=== PATIENT | male | born 1960 | race Caucasian/White ===

== ENCOUNTER 2017-03-11 20:40 | Inpatient (IN) | payer MEDICARE, MEDICAID ==
[~2017-03-11] VITALS: Ht 188 cm; Wt 95.7 kg
[2017-03-11 22:36] LABS: BASOPHILS # (AUTO) 0.03 K/uL (0.00-0.20); BASOPHILS % (AUTO) 0.4 % (0.0-2.0); EOSINOPHILS # (AUTO) 0.05 K/uL (0.00-0.70); EOSINOPHILS % (AUTO) 0.64 % (1.0-6.0); HEMATOCRIT 37.1 % (41-53); HEMOGLOBIN 12.1 g/dL (13.5-17.5); LYMPHOCYTES # (AUTO) 2.4 K/uL (1.0-4.8); LYMPHOCYTES % (AUTO) 29.8 % (22.0-44.0); MEAN CORPUSCULAR HEMOGLOBIN 27.1 pg (26.0-34.0); MEAN CORPUSCULAR HGB CONC 32.5 G/dL (31.0-37.0); MEAN CORPUSCULAR VOLUME 83 fL (80-100); MONOCYTES # (AUTO) 0.6 K/uL (0.1-1.0); MONOCYTES % (AUTO) 7.2 % (2.0-9.0); NEUTROPHILS # (AUTO) 4.9 K/uL (1.8-7.7); NEUTROPHILS % (AUTO) 61.9 % (40.0-70.0); PLATELET COUNT (AUTO) 246 K/uL (150-450); RED BLOOD CELL COUNT(AUTO) 4.46 MIL/uL (4.50-5.90); RED CELL DISTRIBUTION WIDTH 16.8 % (11.5-14.5); WHITE BLOOD COUNT (AUTO) 7.9 K/uL (4.5-11.0)
[2017-03-11 22:40] LABS: APPEARANCE,URINE CLEAR (CLEAR); GLUCOSE, URINE (UA) NEGATIVE (NEGATIVE); KETONES,URINE NEGATIVE (NEGATIVE); LEUKOCYTE ESTERASE ,URINE NEGATIVE (NEGATIVE); OCCULT BLOOD,URINE NEGATIVE (NEGATIVE); PROTEIN,URINE NEGATIVE (NEGATIVE)
[2017-03-11 22:41] LABS: ADD UA MICROSCOPIC NO
[2017-03-11] MEDS ORDERED: DiphenhydrAMINE HCL 50 MG/ML VIAL IM ONE (22:45)
[2017-03-11] MEDS ORDERED: LORazepam 2 MG/ML VIAL IM ONE (22:45)
[2017-03-11 22:55] LABS: ANION GAP 6 mmol/L (8-16); CALCIUM, TOTAL 9.5 mg/dL (8.8-10.5); CARBON DIOXIDE 29 mmol/L (22-29); CHLORIDE 103 mmol/L (98-107); CREATININE 1.12 mg/dL (0.60-1.30); GLOMERULAR FILTR. RATE CALC > 60 mL/min (>60); SODIUM SERUM 138 mmol/L (136-145); UREA NITROGEN, BLOOD 14 mg/dL (7-18)
[2017-03-11 23:00] LABS: ALANINE AMINOTRANSFERASE 27 U/L (12-78); ASPARTATE AMINOTRANSFERASE 20 U/L (15-37); BILIRUBIN,TOTAL 0.2 mg/dL (0.1-1.0); TOTAL PROTEIN, SERUM 7.7 g/dL (6.4-8.2)
[2017-03-11] MEDS: HALOPERIDOL LACTATE 5 MG/ML VIAL IM ONE (23:18)
[2017-03-11] MEDS ORDERED: ZOLPIDEM TARTRATE 10 MG TABLET PO PRN (23:45)
[2017-03-11] MEDS ORDERED: HALOPERIDOL 5 MG TABLET PO PRN (23:45)
[2017-03-12 05:55] VITALS: BP 108/52
[2017-03-12 08:49] VITALS: BP 125/67
[2017-03-12] MEDS: LORazepam 2 MG TABLET PO PRN ×2 (15:03→19:09)
[2017-03-12 16:00] VITALS: BP 122/79
[2017-03-12] MEDS: QUEtiapine FUMARATE 100 MG TABLET PO PRN (18:10)
[2017-03-12] MEDS: QUEtiapine FUMARATE 100 MG TABLET PO SCH (20:41)
[2017-03-12] MEDS ORDERED: ACETAMINOPHEN 325 MG TABLET PO PRN (21:45)
[2017-03-12] MEDS ORDERED: IBUPROFEN 400 MG TABLET PO PRN (21:45)
[2017-03-13 06:10] VITALS: BP 138/99
[2017-03-13] MEDS: FERROUS SULFATE 325 MG EC TABLET PO SCH ×4 (06:47→20:25)
[2017-03-13] MEDS: QUEtiapine FUMARATE 100 MG TABLET PO PRN (08:14)
[2017-03-13] MEDS: LORazepam 2 MG TABLET PO PRN ×2 (08:14→20:25)
[2017-03-13 08:32] VITALS: BP 127/66
[2017-03-13 16:00] VITALS: BP 118/64
[2017-03-13] MEDS: QUEtiapine FUMARATE 100 MG TABLET PO SCH (20:25)
[2017-03-14 00:20] VITALS: BP 145/96
[2017-03-14] MEDS: FERROUS SULFATE 325 MG EC TABLET PO SCH ×4 (06:19→20:18)
[2017-03-14 08:42] VITALS: BP 127/66
[2017-03-14 16:12] VITALS: BP 159/81
[2017-03-14] MEDS: LORazepam 2 MG TABLET PO PRN (17:14)
[2017-03-14] MEDS: QUEtiapine FUMARATE 100 MG TABLET PO PRN (17:14)
[2017-03-14] MEDS: QUEtiapine FUMARATE 100 MG TABLET PO SCH (20:18)
[2017-03-15 06:15] VITALS: BP 120/74
[2017-03-15] MEDS: FERROUS SULFATE 325 MG EC TABLET PO SCH ×4 (06:19→20:55)
[2017-03-15 08:13] VITALS: BP 147/96
[2017-03-15 16:27] VITALS: BP 108/69
[2017-03-15] MEDS: QUEtiapine FUMARATE 100 MG TABLET PO SCH (20:54)
[2017-03-16 05:41] VITALS: BP 147/71
[2017-03-16] MEDS: FERROUS SULFATE 325 MG EC TABLET PO SCH ×4 (06:22→20:14)
[2017-03-16 08:05] VITALS: BP 145/75
[2017-03-16 16:20] VITALS: BP 135/71
[2017-03-16] MEDS: QUEtiapine FUMARATE 100 MG TABLET PO PRN (17:24)
[2017-03-16] MEDS: LORazepam 2 MG TABLET PO PRN (17:24)
[2017-03-16] MEDS: QUEtiapine FUMARATE 200 MG TABLET PO SCH (20:14)
[2017-03-17 05:09] VITALS: BP 142/82
[2017-03-17] MEDS: FERROUS SULFATE 325 MG EC TABLET PO SCH ×4 (06:37→20:20)
[2017-03-17 08:11] VITALS: BP 142/77
[2017-03-17 16:19] VITALS: BP 103/69
[2017-03-17] MEDS: LORazepam 2 MG TABLET PO PRN (17:01)
[2017-03-17] MEDS: QUEtiapine FUMARATE 100 MG TABLET PO PRN (17:02)
[2017-03-17] MEDS: QUEtiapine FUMARATE 200 MG TABLET PO SCH (20:20)
[2017-03-18] MEDS: FERROUS SULFATE 325 MG EC TABLET PO SCH ×4 (06:07→20:25)
[2017-03-18 07:10] VITALS: BP 142/83
[2017-03-18 08:08] VITALS: BP 131/71
[2017-03-18] MEDS: LORazepam 2 MG TABLET PO PRN ×2 (08:36→16:20)
[2017-03-18] MEDS: QUEtiapine FUMARATE 100 MG TABLET PO PRN ×2 (08:36→16:20)
[2017-03-18] MEDS: QUEtiapine FUMARATE 200 MG TABLET PO SCH ×2 (09:27→20:25)
[2017-03-18 16:00] VITALS: BP 116/68
[2017-03-19 00:04] VITALS: BP 124/61
[2017-03-19] MEDS: FERROUS SULFATE 325 MG EC TABLET PO SCH ×4 (06:14→20:05)
[2017-03-19 08:08] VITALS: BP 129/81
[2017-03-19] MEDS: QUEtiapine FUMARATE 200 MG TABLET PO SCH ×2 (08:40→20:05)
[2017-03-19 16:00] VITALS: BP 115/73
[2017-03-19] MEDS: LORazepam 2 MG TABLET PO PRN (16:48)
[2017-03-20 03:07] VITALS: BP 120/94
[2017-03-20] MEDS: FERROUS SULFATE 325 MG EC TABLET PO SCH ×4 (06:31→20:09)
[2017-03-20 08:08] VITALS: BP 143/95
[2017-03-20] MEDS: QUEtiapine FUMARATE 200 MG TABLET PO SCH ×2 (09:38→20:09)
[2017-03-20 16:00] VITALS: BP 134/76
[2017-03-21 00:40] VITALS: BP 120/72
[2017-03-21] MEDS: FERROUS SULFATE 325 MG EC TABLET PO SCH ×4 (06:25→20:42)
[2017-03-21 08:30] VITALS: BP 122/84
[2017-03-21] MEDS: QUEtiapine FUMARATE 300 MG TABLET PO SCH ×2 (08:31→20:42)
[2017-03-21 16:00] VITALS: BP 136/86
[2017-03-21] MEDS: LORazepam 2 MG TABLET PO PRN (16:47)
[2017-03-21] MEDS: QUEtiapine FUMARATE 100 MG TABLET PO PRN (16:48)
[2017-03-22] MEDS: FERROUS SULFATE 325 MG EC TABLET PO SCH ×4 (06:33→20:19)
[2017-03-22 06:59] VITALS: BP 138/87
[2017-03-22 08:00] VITALS: BP 134/88
[2017-03-22] MEDS: QUEtiapine FUMARATE 300 MG TABLET PO SCH ×2 (09:39→20:19)
[2017-03-22] MEDS: LORazepam 2 MG TABLET PO PRN (09:39)
[2017-03-22 16:00] VITALS: BP 135/87
[2017-03-23 02:09] VITALS: BP 120/87
[2017-03-23] MEDS: FERROUS SULFATE 325 MG EC TABLET PO SCH ×4 (06:24→20:18)
[2017-03-23 08:13] VITALS: BP 131/100
[2017-03-23] MEDS: QUEtiapine FUMARATE 300 MG TABLET PO SCH ×2 (08:16→20:18)
[2017-03-23] MEDS: LORazepam 2 MG TABLET PO PRN (08:22)
[2017-03-23 16:00] VITALS: BP 144/87
[2017-03-24 00:20] VITALS: BP 131/80
[2017-03-24] MEDS: FERROUS SULFATE 325 MG EC TABLET PO SCH ×4 (06:58→20:32)
[2017-03-24 08:15] VITALS: BP 137/74
[2017-03-24] MEDS: QUEtiapine FUMARATE 300 MG TABLET PO SCH ×2 (09:09→20:32)
[2017-03-24 17:25] VITALS: BP 144/86
[2017-03-25 04:52] VITALS: BP 130/85
[2017-03-25] MEDS: FERROUS SULFATE 325 MG EC TABLET PO SCH ×4 (07:33→21:14)
[2017-03-25 08:27] VITALS: BP 132/81
[2017-03-25] MEDS: QUEtiapine FUMARATE 300 MG TABLET PO SCH ×2 (09:22→21:54)
[2017-03-25 16:33] VITALS: BP 132/87
[2017-03-26 00:49] VITALS: BP 128/92
[2017-03-26] MEDS ORDERED: QUET300T2 PO (03:42)
[2017-03-26] MEDS ORDERED: FERR-89 PO (03:42)
[2017-03-26] MEDS: FERROUS SULFATE 325 MG EC TABLET PO SCH (07:02)
[2017-03-26 08:00] VITALS: BP 121/76
== END 2017-03-26 08:00 | disposition home or self-care (01) | DRG 885 ==
LOC: EMS 20:43 → B3A 03-12 04:05 → B2S 03-23 12:52
PROC: HZ37ZZZ Individual Counseling for Substance Abuse Treatment, Motivational Enhancement (ICD-10-PCS; principal; 2017-03-15)
DX: F20.0 Paranoid schizophrenia (principal); F19.10 Other psychoactive substance abuse, uncomplicated; F17.210 Nicotine dependence, cigarettes, uncomplicated; D64.9 Anemia, unspecified; Z88.8 Allergy status to other drugs, medicaments and biological substances; Z71.51 Drug abuse counseling and surveillance of drug abuser; Z59.0 Homelessness; Z79.899 Other long term (current) drug therapy
CPT/HCPCS: 96372; 99285; G0480; J1200; J1630; J2060

== ENCOUNTER 2017-04-20 18:07 | Inpatient (IN) | payer MEDICARE, MEDICAID ==
[~2017-04-20] VITALS: Ht 188 cm; Wt 107.5 kg
[~2017-04-20 18:07] MED LIST: FERR-89 PO; QUET300T2 PO
[2017-04-20 22:13] LABS: BASOPHILS % (AUTO) 0.5 % (0.0-2.0); EOSINOPHILS % (AUTO) 0.6 % (1.0-6.0); HEMATOCRIT 36.2 % (41-53); HEMOGLOBIN 11.6 g/dL (13.5-17.5); LYMPHOCYTES # (AUTO) 3.3 K/uL (1.0-4.8); LYMPHOCYTES % (AUTO) 38.4 % (22.0-44.0); MEAN CORPUSCULAR VOLUME 84 fL (80-100); MONOCYTES # (AUTO) 0.7 K/uL (0.1-1.0); MONOCYTES % (AUTO) 7.8 % (2.0-9.0); NEUTROPHILS # (AUTO) 4.5 K/uL (1.8-7.7); NEUTROPHILS % (AUTO) 52.7 % (40.0-70.0); PLATELET COUNT (AUTO) 259 K/uL (150-450); RED BLOOD CELL COUNT(AUTO) 4.28 MIL/uL (4.50-5.90); WHITE BLOOD COUNT (AUTO) 8.6 K/uL (4.5-11.0)
[2017-04-20 22:23] LABS: ANION GAP 6 mmol/L (8-16); CALCIUM, TOTAL 8.9 mg/dL (8.8-10.5); CARBON DIOXIDE 29 mmol/L (22-29); CHLORIDE 104 mmol/L (98-107); CREATININE 1.23 mg/dL (0.60-1.30); GLOMERULAR FILTR. RATE CALC 60 mL/min (>60); POTASSIUM 3.9 mmol/L (3.5-5.1); SODIUM SERUM 139 mmol/L (136-145); UREA NITROGEN, BLOOD 21 mg/dL (7-18)
[2017-04-20 22:29] LABS: ALANINE AMINOTRANSFERASE 37 U/L (12-78); ALBUMIN 3.8 g/dL (3.4-5.0); ASPARTATE AMINOTRANSFERASE 33 U/L (15-37); BILIRUBIN,TOTAL 0.2 mg/dL (0.1-1.0); TOTAL PROTEIN, SERUM 7.4 g/dL (6.4-8.2)
[2017-04-20 23:19] LABS: APPEARANCE,URINE CLOUDY (CLEAR); GLUCOSE, URINE (UA) NEGATIVE (NEGATIVE); KETONES,URINE NEGATIVE (NEGATIVE); LEUKOCYTE ESTERASE ,URINE NEGATIVE (NEGATIVE); OCCULT BLOOD,URINE TRACE (NEGATIVE); PROTEIN,URINE NEGATIVE (NEGATIVE)
[2017-04-20 23:34] LABS: ADD UA MICROSCOPIC YES
[2017-04-20 23:39] LABS: URIC ACID CRYSTALS,URINE Rare /LPF (None Seen); WBC,URINE 0-2 /HPF (0-5)
[2017-04-21 00:30] VITALS: BP 131/82
[2017-04-21] MEDS: QUEtiapine FUMARATE 100 MG TABLET PO PRN (09:00)
[2017-04-21] MEDS: LORazepam 2 MG TABLET PO PRN (09:00)
[2017-04-21] MEDS: QUEtiapine FUMARATE 200 MG TABLET PO SCH ×2 (09:45→20:19)
[2017-04-21 16:00] VITALS: BP 130/69
[2017-04-21] MEDS ORDERED: IBUPROFEN 400 MG TABLET PO PRN (19:30)
[2017-04-21] MEDS ORDERED: ACETAMINOPHEN 325 MG TABLET PO PRN (19:30)
[2017-04-22] MEDS: LORazepam 2 MG TABLET PO PRN ×2 (08:07→16:03)
[2017-04-22] MEDS: QUEtiapine FUMARATE 200 MG TABLET PO SCH ×2 (08:07→20:41)
[2017-04-22] MEDS: QUEtiapine FUMARATE 100 MG TABLET PO PRN ×2 (08:07→16:03)
[2017-04-22 08:41] VITALS: BP 136/78
[2017-04-22 16:03] VITALS: BP 131/68
[2017-04-22] MEDS: ZOLPIDEM TARTRATE 10 MG TABLET PO PRN (21:00)
[2017-04-23 06:37] VITALS: BP 131/77
[2017-04-23 08:01] VITALS: BP 136/74
[2017-04-23] MEDS: QUEtiapine FUMARATE 200 MG TABLET PO SCH ×2 (08:36→20:45)
[2017-04-23] MEDS: LORazepam 2 MG TABLET PO PRN (08:36)
[2017-04-23 16:06] VITALS: BP 121/71
[2017-04-24 00:33] VITALS: BP 138/91
[2017-04-24 08:03] VITALS: BP 134/82
[2017-04-24] MEDS: QUEtiapine FUMARATE 200 MG TABLET PO SCH ×2 (08:14→20:13)
[2017-04-24] MEDS: LORazepam 2 MG TABLET PO PRN ×2 (08:14→16:36)
[2017-04-24 16:00] VITALS: BP 126/84
[2017-04-25 06:00] VITALS: BP 129/86
[2017-04-25 08:24] VITALS: BP 131/72
[2017-04-25] MEDS: LORazepam 2 MG TABLET PO PRN ×2 (08:40→17:07)
[2017-04-25] MEDS: QUEtiapine FUMARATE 200 MG TABLET PO SCH (08:40)
[2017-04-25] MEDS: QUEtiapine FUMARATE 300 MG TABLET PO SCH ×2 (09:00→20:06)
[2017-04-25 16:06] VITALS: BP 132/85
[2017-04-25] MEDS: QUEtiapine FUMARATE 100 MG TABLET PO PRN (17:07)
[2017-04-25] MEDS: ZOLPIDEM TARTRATE 10 MG TABLET PO PRN (20:07)
[2017-04-26 06:59] VITALS: BP 152/92
[2017-04-26] MEDS: LORazepam 2 MG TABLET PO PRN (08:08)
[2017-04-26] MEDS: QUEtiapine FUMARATE 300 MG TABLET PO SCH ×2 (08:08→20:19)
[2017-04-26 08:57] VITALS: BP 144/86
[2017-04-26 16:02] VITALS: BP 135/80
[2017-04-27 07:29] VITALS: BP 124/75
[2017-04-27 08:02] VITALS: BP 122/76
[2017-04-27] MEDS: LORazepam 2 MG TABLET PO PRN (09:33)
[2017-04-27] MEDS: QUEtiapine FUMARATE 300 MG TABLET PO SCH ×2 (09:34→20:24)
[2017-04-27 16:00] VITALS: BP 121/79
[2017-04-27] MEDS: ZOLPIDEM TARTRATE 10 MG TABLET PO PRN (20:24)
[2017-04-28 08:30] VITALS: BP 120/65
[2017-04-28] MEDS: LORazepam 2 MG TABLET PO PRN ×2 (08:31→16:09)
[2017-04-28] MEDS: QUEtiapine FUMARATE 300 MG TABLET PO SCH ×2 (08:31→20:16)
[2017-04-28 16:00] VITALS: BP 141/73
[2017-04-28] MEDS: ZOLPIDEM TARTRATE 10 MG TABLET PO PRN (21:03)
[2017-04-29 06:07] VITALS: BP 121/63
[2017-04-29 08:02] VITALS: BP 134/69
[2017-04-29] MEDS: QUEtiapine FUMARATE 300 MG TABLET PO SCH (08:34)
[2017-04-29] MEDS ORDERED: QUET300T2 PO (09:49)
== END 2017-04-29 15:50 | disposition home or self-care (01) | DRG 885 ==
LOC: EMS 18:12 → B3A 23:32
DX: F20.0 Paranoid schizophrenia (principal); R45.851 Suicidal ideations; D64.9 Anemia, unspecified
CPT/HCPCS: 87081; 99285; G0480

== ENCOUNTER 2017-06-17 18:16 | Inpatient (IN) | payer MEDICARE, MEDICAID ==
[~2017-06-17] VITALS: Ht 190.5 cm; Wt 111.1 kg
[~2017-06-17 18:16] MED LIST changes: -FERR-89 PO
[2017-06-17] MEDS ORDERED: LORazepam 2 MG TABLET PO ONE (19:15)
[2017-06-17] MEDS ORDERED: ZIPRASIDONE HCL 40 MG CAPSULE PO ONE (19:15)
[2017-06-17] MEDS ORDERED: DiphenhydrAMINE HCL 50 MG CAPSULE PO ONE (19:15)
[2017-06-17 19:41] LABS: BASOPHILS % (AUTO) 0.3 % (0.0-2.0); EOSINOPHILS % (AUTO) 0.3 % (1.0-6.0); HEMATOCRIT 34.3 % (41-53); HEMOGLOBIN 11.4 g/dL (13.5-17.5); LYMPHOCYTES # (AUTO) 2.3 K/uL (1.0-4.8); MEAN CORPUSCULAR HEMOGLOBIN 27.8 pg (26.0-34.0); MEAN CORPUSCULAR HGB CONC 33.1 G/dL (31.0-37.0); MEAN CORPUSCULAR VOLUME 84 fL (80-100); MONOCYTES # (AUTO) 0.8 K/uL (0.1-1.0); MONOCYTES % (AUTO) 9.8 % (2.0-9.0); NEUTROPHILS # (AUTO) 4.7 K/uL (1.8-7.7); NEUTROPHILS % (AUTO) 60.6 % (40.0-70.0); PLATELET COUNT (AUTO) 177 K/uL (150-450); RED BLOOD CELL COUNT(AUTO) 4.09 MIL/uL (4.50-5.90); RED CELL DISTRIBUTION WIDTH 15.4 % (11.5-14.5); WHITE BLOOD COUNT (AUTO) 7.8 K/uL (4.5-11.0)
[2017-06-17 19:52] LABS: ANION GAP 5 mmol/L (8-16); CALCIUM, TOTAL 9.3 mg/dL (8.8-10.5); CARBON DIOXIDE 29 mmol/L (22-29); CHLORIDE 106 mmol/L (98-107); CREATININE 1.38 mg/dL (0.60-1.30); GLOMERULAR FILTR. RATE CALC 53 mL/min (>60); POTASSIUM 3.4 mmol/L (3.5-5.1); SODIUM SERUM 140 mmol/L (136-145); UREA NITROGEN, BLOOD 22 mg/dL (7-18)
[2017-06-17 19:58] LABS: ALANINE AMINOTRANSFERASE 36 U/L (12-78); ALBUMIN 3.6 g/dL (3.4-5.0); ASPARTATE AMINOTRANSFERASE 35 U/L (15-37); BILIRUBIN,TOTAL 0.4 mg/dL (0.1-1.0); TOTAL PROTEIN, SERUM 7.1 g/dL (6.4-8.2)
[2017-06-17] MEDS ORDERED: POTASSIUM CHLORIDE 20 MEQ ER TABLET PO ONE (20:30)
[2017-06-18 09:47] VITALS: BP 141/80
[2017-06-18] MEDS ORDERED: LOPERAMIDE HCL 2 MG CAPSULE PO PRN (11:00)
[2017-06-18] MEDS ORDERED: PETROLATUM,WHITE 71 GM JELLY TP PRN (11:00)
[2017-06-18] MEDS ORDERED: MAGNESIUM HYDROXIDE SUSPENSION 30 ML UDCUP PO PRN (11:00)
[2017-06-18] MEDS ORDERED: BACITRACIN 28.4 GM OINTMENT TP PRN (11:00)
[2017-06-18] MEDS ORDERED: ACETAMINOPHEN 325 MG TABLET PO PRN (11:00)
[2017-06-18] MEDS ORDERED: ONDANSETRON HCL 4 MG TABLET PO PRN (11:00)
[2017-06-18] MEDS ORDERED: BENZOCAINE/MENTHOL LOZENGE MM PRN (11:00)
[2017-06-18] MEDS ORDERED: ALBUTEROL SULFATE HFA 90 MCG/PUFF 8 GM INHALER IH PRN (11:00)
[2017-06-18] MEDS ORDERED: IBUPROFEN 600 MG TABLET PO PRN (11:00)
[2017-06-18] MEDS ORDERED: CloNIDine HCL 0.1 MG TABLET PO PRN (11:00)
[2017-06-18] MEDS ORDERED: POTASSIUM CHLORIDE 20 MEQ ER TABLET PO ONE (11:00)
[2017-06-18] MEDS ORDERED: MAG HYDROX/AL HYDROX/SIMETH ES 30 ML SUSPENSION UDCUP PO PRN (11:00)
[2017-06-18 16:17] VITALS: BP 130/78
[2017-06-18] MEDS: LORazepam 2 MG TABLET PO PRN (19:16)
[2017-06-18] MEDS: QUEtiapine FUMARATE 300 MG TABLET PO SCH (20:22)
[2017-06-18] MEDS: ZOLPIDEM TARTRATE 10 MG TABLET PO PRN (21:25)
[2017-06-19 08:30] VITALS: BP 136/86
[2017-06-19] MEDS: QUEtiapine FUMARATE 300 MG TABLET PO SCH ×2 (09:05→21:21)
[2017-06-19] MEDS: LORazepam 2 MG TABLET PO PRN (15:07)
[2017-06-19 16:02] VITALS: BP 141/78
[2017-06-20 08:19] VITALS: BP 135/95
[2017-06-20] MEDS: QUEtiapine FUMARATE 300 MG TABLET PO SCH ×2 (08:37→20:11)
[2017-06-20 16:27] VITALS: BP 148/95
[2017-06-20] MEDS: LORazepam 2 MG TABLET PO PRN ×2 (16:27→21:36)
[2017-06-20] MEDS: ZOLPIDEM TARTRATE 10 MG TABLET PO PRN (21:37)
[2017-06-21] MEDS: QUEtiapine FUMARATE 300 MG TABLET PO SCH ×2 (08:33→21:05)
[2017-06-21] MEDS: LORazepam 2 MG TABLET PO PRN (08:33)
[2017-06-21 09:44] VITALS: BP 133/82
[2017-06-22] MEDS: QUEtiapine FUMARATE 300 MG TABLET PO SCH ×3 (09:00→20:53)
[2017-06-22 09:12] VITALS: BP 130/95
[2017-06-22] MEDS: LORazepam 2 MG TABLET PO PRN ×2 (16:37→21:05)
[2017-06-22] MEDS: ZOLPIDEM TARTRATE 10 MG TABLET PO PRN (21:05)
[2017-06-23] MEDS: LORazepam 2 MG TABLET PO PRN ×2 (07:57→15:26)
[2017-06-23] MEDS: QUEtiapine FUMARATE 300 MG TABLET PO SCH (08:01)
[2017-06-23 08:05] VITALS: BP 140/94
[2017-06-23 16:49] VITALS: BP 123/78
[2017-06-23] MEDS: QUEtiapine FUMARATE 200 MG TABLET PO SCH (21:14)
[2017-06-24] MEDS: QUEtiapine FUMARATE 200 MG TABLET PO SCH (08:07)
[2017-06-24 08:15] VITALS: BP 137/78
[2017-06-24] MEDS ORDERED: QUET200T PO (13:07)
[2017-06-25] MEDS ORDERED: INSULIN SQ (08:06)
== END 2017-06-24 15:00 | disposition home or self-care (01) | DRG 885 ==
LOC: EMS 18:19 → 3EC 19:59
PROVIDERS: ADMIT Psychiatry & Neurology Child & Adolescent Psychiatry; ATTEND Psychiatry & Neurology Child & Adolescent Psychiatry
DX: F20.0 Paranoid schizophrenia (principal); N17.9 Acute kidney failure, unspecified; E66.9 Obesity, unspecified; E87.6 Hypokalemia; F17.210 Nicotine dependence, cigarettes, uncomplicated; G47.00 Insomnia, unspecified; J44.9 Chronic obstructive pulmonary disease, unspecified; K21.9 Gastro-esophageal reflux disease without esophagitis; K59.00 Constipation, unspecified; F41.9 Anxiety disorder, unspecified; Z71.6 Tobacco abuse counseling; Z88.8 Allergy status to other drugs, medicaments and biological substances; Z56.0 Unemployment, unspecified; Z59.0 Homelessness; Z68.30 Body mass index [BMI] 30.0-30.9, adult
CPT/HCPCS: 99285; 99406; G0480

== ENCOUNTER 2017-06-25 08:04 | Emergency (ER) | payer MEDICARE, MEDICAID ==
[~2017-06-25] VITALS: Ht 190.5 cm; Wt 117.3 kg
[~2017-06-25 08:04] MED LIST changes: +QUET200T PO; -QUET300T2 PO
[2017-06-25] MEDS ORDERED: INSULIN SQ (08:06)
[2017-06-25 09:25] VITALS: BP 157/87
== END 2017-06-25 09:26 | disposition home or self-care (01) ==
LOC: EMS 08:06
DX: Z76.0 Encounter for issue of repeat prescription (principal); F20.9 Schizophrenia, unspecified; E11.9 Type 2 diabetes mellitus without complications; Z79.4 Long term (current) use of insulin; Z88.8 Allergy status to other drugs, medicaments and biological substances; Z87.891 Personal history of nicotine dependence
CPT/HCPCS: 82962; 99283